=== PATIENT | male | born 1940 | race Caucasian/White ===

== ENCOUNTER 2016-06-27 10:59 | Day surgery (SDC) | payer MEDICARE ==
[~2016-06-27 10:59] MED LIST: DEXAMETHASONE SOD PHOSPHATE 10 MG/ML 1 ML VIAL IV ONE; HYDROmorphone 1 MG/ML 1 ML SYRINGE IVP PRN; LACTATED RINGERS 1,000 ML IV SCH; LIDOCAINE 1% 20 ML VIAL (10MG/ML) FOR IV START INTRADERMA PRN; Pre Op ABX Message 1 EACH MISC MISCELLANE ONE
[2016-06-27 11:36] VITALS: TEMP 97.6
[2016-06-27] MEDS ORDERED: KETOROLAC 30 MG/ML 1 ML VIAL ONE (12:28)
[2016-06-27] MEDS ORDERED: MIDAZOLAM 2 MG/2 ML VIAL ONE (12:28)
[2016-06-27] MEDS ORDERED: PROPOFOL 10 MG/ML 20 ML VIAL IV ONE (12:28)
[2016-06-27] MEDS ORDERED: LIDOCAINE 1% INJ 10MG/ML (20 ML MDV) ONE (12:28)
[2016-06-27] MEDS ORDERED: fentaNYL (PF) 50 MCG/ML 2 ML AMP ONE (12:28)
[2016-06-27] MEDS ORDERED: LIDOCAINE 2% INJ 20 MG/ML SQ ONE (12:41)
[2016-06-27] MEDS ORDERED: BUPIVACAIN-EPI 0.5%-1:200,000 30 ML VIAL SQ ONE (12:42)
[2016-06-27 13:50] VITALS: BP 157/75; PULSE 65; RESP 16
--- NOTE | 2016-06-28 08:08 | OP ---
DATE OF SERVICE: 06/27/2016 SURGEON: ALIA TALAVERA DO HAND SCREEN PRINTER: PREOPERATIVE DIAGNOSES: 1. Left carpal tunnel syndrome. 2. Left cubital tunnel syndrome. POSTOPERATIVE DIAGNOSES: 1. Left carpal tunnel syndrome. 2. Left cubital tunnel syndrome. OPERATION: 1. Carpal tunnel release. 2. Cubital tunnel release. ANESTHESIA: ESTIMATED BLOOD LOSS: SPECIMENS REMOVED: COMPLICATIONS: GROSS PATHOLOGY: Carpal tunnel release was relatively standard with no apparent complications. OPERATIVE FINDINGS: DESCRIPTION OF PROCEDURE: Regarding the cubital tunnel release, there was abnormal anatomic findings. There was very little epicondylar notch due to thickened tissue possible bone deposition. The ulnar nerve was subluxed anteriorly, more on the surface of the medial epicondyle. It was extremely tightly bound by muscle fascia proximally. Release was quite satisfactory and the nerve was intact at the completion of the procedure. When the elbow was placed through a range of motion at the completion of the procedure, there were no significant subluxations. There was no indication for further transposition. I then performed a local injection along the line of the incision with a combination of Marcaine and Xylocaine both without epinephrine. The hand was then prepped and draped in the usual manner. The arm was elevated, exsanguinated and the cuff was inflated to 250 mmHg. A longitudinal incision was made along the ring finger ray distal to the wrist crease. Dissection was taken through the skin and subcutaneous tissue, initially sharp through the skin and then blunt through the subcutaneous tissue to ensure protection of any potential terminal transverse branches of the palmar cutaneous nerve. The palmar fascia was then incised under direct vision longitudinally exposing the transverse carpal ligament. The transverse carpal ligament also was incised under direct vision. The dissection was then continued proximally beneath the skin under direct vision to release the distal forearm fascia. The median nerve was then reflected free of tenosynovium to ensure no adhesions. The tourniquet was then released. The wound was then irrigated and the skin was closed with a running 5-0 nylon suture. A soft bulky dressing was applied including a volar plaster splint holding the wrist in a neutral slightly extended position. The patient was then taken to the recovery room in satisfactory condition.
== END 2016-06-27 14:15 | disposition home or self-care (01) ==
LOC: OR 10:59
PROVIDERS: ATTEND Orthopaedic Surgery Hand Surgery
DX: G56.03 Carpal tunnel syndrome, bilateral upper limbs (principal); G56.23 Lesion of ulnar nerve, bilateral upper limbs; N40.0 Benign prostatic hyperplasia without lower urinary tract symptoms; I48.91 Unspecified atrial fibrillation; Z79.01 Long term (current) use of anticoagulants; Z79.899 Other long term (current) drug therapy
CPT/HCPCS: 64721; 64718; J2001 ×2; J2250; J1100; J3010; J1885; J2704; 99152; 99153

== ENCOUNTER 2016-07-25 13:05 | Day surgery (SDC) | payer MEDICARE ==
[2016-07-20 11:39] VITALS: BMI 25.8
[~2016-07-25 13:05] MED LIST changes: +MIDAZOLAM 2 MG/2 ML VIAL IV PRN; +ONDANSETRON 4 MG/2 ML VIAL IVP ONE; +SCOPOLAMINE 1.5MG/72HR PATCH TRANSDERM ONE
[2016-07-25 13:21] VITALS: TEMP 98.1
[2016-07-25] MEDS ORDERED: LIDOCAINE 1% INJ 10MG/ML (20 ML MDV) ONE (14:02)
[2016-07-25] MEDS ORDERED: fentaNYL (PF) 50 MCG/ML 2 ML AMP ONE (14:02)
[2016-07-25] MEDS ORDERED: MIDAZOLAM 2 MG/2 ML VIAL ONE (14:02)
[2016-07-25] MEDS ORDERED: KETOROLAC 30 MG/ML 1 ML VIAL ONE (14:02)
[2016-07-25] MEDS ORDERED: PROPOFOL 10 MG/ML 20 ML VIAL IV ONE (14:02)
[2016-07-25] MEDS ORDERED: BUPIVACAINE (PF) 0.5% 30 ML VIAL SQ ONE (14:13)
[2016-07-25] MEDS ORDERED: LIDOCAINE 2% (PF) 20 MG/ML 10ML SQ ONE (14:13)
[2016-07-25 14:43] VITALS: RESP 18
[2016-07-25 15:18] VITALS: BP 123/67; PULSE 68
--- NOTE | 2016-08-02 23:12 | OP ---
DATE OF SERVICE: 07/25/2016 SURGEON: ALIA TALAVERA DO MACHINE TURNER: PREOPERATIVE DIAGNOSES: 1. Right carpal tunnel syndrome. 2. Right cubital tunnel syndrome. POSTOPERATIVE DIAGNOSES: 1. Right carpal tunnel syndrome. 2. Right cubital tunnel syndrome. OPERATION: 1. Carpal tunnel release, right wrist. 2. Cubital tunnel release, right elbow. ANESTHESIA: ESTIMATED BLOOD LOSS: SPECIMENS REMOVED: COMPLICATIONS: PROCEDURE #1: The patient is taken to the operative suite where the procedure was done local with sedation. A light amount of IV sedation was provided by the department of anesthesia . After normal prep and drape, the arm was elevated, exsanguinated, and a tourniquet was inflated to 250 mm Mercury in proximal arm. A proximal palm midline 2 cm incision was performed and release fo transverse carpal ligament was performed under direct inspection. No apparent complications were encountered. PROCEDURE #2: . A longitudinal incision was made, somewhat posteriorly near the olecranon. Dissection was then taken through the skin and subcutaneous tissue with blunt dissection then performed to protect any posterior branches of the medial antebrachial cutaneous nerve of the arm. The ulnar nerve was then visualized in the retrocondylar groove and was traced in both the proximal and distal directions. Care was taken to ensure all potential sites of nerve entrapment were decompressed including the arcade of [place], the medial intermuscular septums, the retrocondylar groove, decubital tunnel and the flexor aponeurosis distally. Care was taken to avoid dissecting the ulnar nerve from its vascular supply. At the completion of the procedure, the elbow was placed in flexion and there is no sign of subluxation. The wound was then irrigated and the skin was closed with running 5-0 nylon suture. Marcaine was injected for long acting anesthetic. A soft bulky dressing was applied and the patient taken to the recovery room in satisfactory condition. ESTEBAN
== END 2016-07-25 15:19 | disposition home or self-care (01) ==
LOC: OR 13:05
PROVIDERS: ATTEND Orthopaedic Surgery Hand Surgery
DX: G56.03 Carpal tunnel syndrome, bilateral upper limbs (principal); G56.21 Lesion of ulnar nerve, right upper limb; I48.91 Unspecified atrial fibrillation; Z79.01 Long term (current) use of anticoagulants; N40.0 Benign prostatic hyperplasia without lower urinary tract symptoms; Z79.899 Other long term (current) drug therapy
CPT/HCPCS: 29848; 64718; J2250; J1100; J2001 ×2; J2405; J3010; J1885; J2704

== ENCOUNTER 2018-05-31 13:48 | Day surgery (SDC) | payer MEDICARE ==
[2018-05-28 12:43] VITALS: BMI 26.1
[2018-05-31] MEDS ORDERED: LIDOCAINE 1% INJ 10MG/ML (20 ML MDV) ONE (14:06)
[2018-05-31] MEDS ORDERED: SODIUM CHLORIDE 0.9% 1,000 ML IV ONE (14:15)
[2018-05-31] MEDS ORDERED: MIDAZOLAM 2 MG/2 ML VIAL ONE (14:43)
[2018-05-31] MEDS ORDERED: PROPOFOL 10 MG/ML 20 ML VIAL IV ONE (14:43)
[2018-05-31] MEDS ORDERED: SUCCINYLCHOLINE CHLORIDE 100 MG/5 ML SYR IV ONE (14:43)
[2018-05-31] MEDS ORDERED: PROTAMINE SULFATE 10 MG/ML 5 ML VIAL IV ONE (14:43)
[2018-05-31] MEDS ORDERED: HEPARIN SODIUM,PORCINE 5,000 UNIT/ML 1 ML VIAL ONE (14:43)
[2018-05-31] MEDS ORDERED: fentaNYL (PF) 50 MCG/ML 2 ML AMP ONE (14:43)
[2018-05-31] MEDS ORDERED: GLYCOPYRROLATE 0.2 MG/ML 2 ML VIAL ONE (14:43)
[2018-05-31] MEDS ORDERED: HEPARIN SOD,PORK IN 0.45% NACL 25,000 UNIT in 0.45% NACL 1 250ML.BAG IV ONE (15:19)
[2018-05-31] MEDS ORDERED: LIDOCAINE 1% INJ 10MG/ML (20 ML MDV) SQ ONE (15:19)
[2018-05-31] MEDS ORDERED: SODIUM CHLORIDE 0.9% 500 ML 500 ML IV ONE (16:47)
[2018-05-31] MEDS ORDERED: ACETAMINOPHEN TAB 325 MG TAB PO PRN (17:22)
[2018-05-31] MEDS ORDERED: HYDROcodone/APAP 5-325MG 1 EACH TAB PO PRN (17:22)
[2018-05-31] MEDS ORDERED: ACETAMINOPHEN IV (For NPO) 1,000 MG in EMPTY BAG 1 BAG IVPB ONE (17:22)
--- NOTE | 2018-05-31 17:48 | P.PCN ---
Preoperative Diagnosis: Diagnosis Atrial fibrillation, symptomatic, persistent Result Successful pulmonary vein isolation of all veins using cryo-ablation Complete entrance block in all 4 veins confirmed No evidence for phrenic nerve injury Additional Y ablations in the atrium, anterior right gely outside the pulmonary veins and left fossa ovalis Esophageal deflection YES , left-sided esophagus Electrical cardioversion with a synchronized shock across the chest YES , at the end of the procedure after complete isolation of all veins Procedure details Patient was brought to the EP lab in a fasting state. Written informed consent was obtained prior to the procedure. Procedure performed under general anesthesia After initial muscle relaxant use, muscle relaxants were not given thereafter in order to assess phrenic nerve during procedure. Patient prepped and draped as per protocol Full cryo-set up with standard preparation of the cryoablation tools done. Femoral Venous access obtained on the right and left groins Venous and arterial Sheaths placed. Diagnostic catheters for the high right atrium, phrenic nerve stimulation and pacing, His bundle, RV and coronary sinus placed Intracardiac echo catheter placed. Long sheath placed in the right atrium Left and right transseptal catheterization performed under intracardiac echo guidance. Intravenous heparin with aCT above 300 Later, catheter positioning and balloon positioning in the left atrium, under intracardiac echo guidance Recording from the high right atrium coronary sinus right ventricle Baseline measurements HV interval 24 ms Transseptal catheterization performed RA pressure 12/23/7 LA pressure 12//8 Transseptal catheterization performed with standard sheath. The cryoablation sheath was then placed with an over the wire exchange without any acute complications. All 4 pulmonary veins were isolated in the following sequence: Left superior followed by left inferior followed by right superior followed by right inferior The cryo-ablation balloon was placed at the os of each vein 1.5 mL of IV dye was injected to confirm an occluded vein Goal during cryoablation was to achieve complete occlusion of the pulmonary vein , achieve -30C at 30 seconds and achieve -40C at 60 seconds and a time to affect of less than 60-90 seconds, . If not the balloon was repositioned to obtain this result After completion of Cryoblation with durations from 180-240 seconds, entrance block was confirmed with the Attain circular catheter in a roving fashion around the antrum of the pulmonary veins Phrenic nerve pacing was performed from the SVC, right innominate vein area and diaphragm voltage was monitored. Diaphragmatic contractions were also monitored manually for strength of contraction. Parameter goals for each cryo freeze -30 C by 30 seconds -40 degrees C by 60 seconds Minimum between minus 40-55C Thaw time greater than 10 seconds Balloon visualized by intracardiac echo The esophagus was intubated. Esophageal Temperature monitoring with a CIRCA catheter formed. Esophageal deflection for hypothermia of the esophagus below 32C Left superior pulmonary vein 3 minutes followed by 2 minutes, complete isolation Left inferior pulmonary vein 3 minutes, complete isolation Right superior pulmonary vein, during phrenic nerve pacing 3 minutes followed by 3 minutes, isolation and 77 seconds Right inferior pulmonary vein, during phrenic nerve pacing 4 minute cryoablation, complete isolation Additional cryo ablations performed #1 anterior right gely outside the pulmonary veins, in between the 2 pulmonary veins #2 fossa ovalis on the left side At the end of the procedure the Achieve catheter was once again used to check for entrance block Phrenic nerve stimulation was performed to confirm diaphragmatic stimulation the end of the procedure Cine fluoroscopy was performed at the very end of the procedure to confirm movement of both diaphragms with inspiration and expiration At the end of the procedure the patient was extubated Heparin was reversed Venous sheaths were removed and hemostasis assured Procedures performed (PVI - CRYO Ablation) Invasive hemodynamic monitoring while general anesthesia, right femoral arterial line for monitoring and sampling Comprehensive diagnostic EP study CS pacing and recording Left and right transseptal catheterization Catheter the mapping of the tachycardia (NOT 3D mapping) Intracardiac echocardiography Pulmonary vein isolation with transseptal and comprehensive EPS, [id number] Additional linear ablation 2 Electrical cardioversion with a synchronized shock across the chest [id number] Anesthesia: GETA
[2018-05-31] MEDS: SODIUM CHLORIDE 0.9% 1,000 ML IV SCH ×2 (19:38→19:39)
[2018-05-31] MEDS: LACTATED RINGERS 1,000 ML IV SCH ×2 (19:38→19:39)
[2018-05-31] MEDS ORDERED: RIVAROXABAN 20 MG TAB PO SCH (21:00)
[2018-05-31] MEDS ORDERED: FAMOTIDINE 20 MG TAB PO SCH (21:00)
[2018-05-31] MEDS: COLCHICINE 0.6 MG EACH PO SCH (21:21)
--- NOTE | 2018-06-01 07:20 | P.DS ---
Providers Attending physician: Austin Ching Primary care physician: [facility] Course: Impression is doing well. No chest discomfort assess lightheadedness or palpitations. He does have a sore throat. No groin problems no pain Afebrile 98.6F pulse rate in the 70s blood pressure 120/68 mmHg No JVD no swelling in the groins bilaterally normal heart sounds normal S1 normal S2 no murmurs or gallops no rub Breath sounds are clear no rhonchi no crackles Abdomen soft nontender Extremities warm no edema No hematoma no swelling in both groins Impression Persistent atrial fibrillation status post cryoablation of the pulmonary veins with complete isolation of all 4 pulmonary veins Past history of atrial flutter status post ablation many years back Sick sinus syndrome, unable to tolerate antiarrhythmic drugs and AV node blocking drugs Appropriately anticoagulated since ANTHONY VASC core is at least 2 Suggest Ablating the hallways discharge home before 5:00 if stable and follow-up in the office in 1-2 weeks Patient Condition at Discharge: Stable Plan - Discharge Summary Discharge Rx Participant: No New Discharge Prescriptions: Continue Glucosam/Jose-Msm1/C/Walter/Bosw [Glucosamine-Chondroitin Tablet] 1 each PO DAILY Fish Oil/Dha/Epa [Fish Oil 1,200 mg Fish Oil] 1 each PO DAILY Cholecalciferol [Vitamin D3] 5,000 unit PO DAILY Rivaroxaban [Xarelto] 20 mg PO HS Fluticasone Nasal [place] [Flonase Nasal [place]] 1 spr NASAL DAILY PRN PRN Reason: Allergy Symptoms Ubidecarenone [Co Q-10] 100 mg PO DAILY Milk Thistle 1,000 mg PO DAILY Curcumin 1,000 mg PO DAILY Meloxicam [Mobic] 15 mg PO DAILY PRN PRN Reason: OA PAIN Discharge Medication List Cholecalciferol [Vitamin D3] 5,000 unit PO DAILY 03/03/16 [History] Fish Oil/Dha/Epa [Fish Oil 1,200 mg Fish Oil] 1 each PO DAILY 03/03/16 [History] Glucosam/Jose-Msm1/C/Walter/Bosw [Glucosamine-Chondroitin Tablet] 1 each PO DAILY 03/03/16 [History] Fluticasone Nasal [place] [Flonase Nasal [place]] 1 spr NASAL DAILY PRN 06/22/16 [ History] Rivaroxaban [Xarelto] 20 mg PO HS 06/22/16 [History] Curcumin 1,000 mg PO DAILY 05/28/18 [History] Meloxicam [Mobic] 15 mg PO DAILY PRN 05/28/18 [History] Milk Thistle 1,000 mg PO DAILY 05/28/18 [History] Ubidecarenone [Co Q-10] 100 mg PO DAILY 05/28/18 [History] Follow up Appointment(s)/Referral(s): Austin Ching MD [STAFF PHYSICIAN] - 1 Week (Groin check in 1 week Follow-up with Dr. Solis again in 3 months) Activity/Diet/Wound Care/Special Instructions: Post EP study - Ablation instructions 1. Keep access sites dry for 2 days. 2. No heavy lifting or straining for 2 days. 3. Avoid bending the hips repeatedly for 2 days. 4. You may go up and down stairs slowly Call if the following is noted 1. Bleeding, increasing swelling or pain at the access sites. 2. Increasing chest discomfort, especially upon taking a deep breath. 3. Increasing shortness of breath, at rest or with exertion. 4. Undue cough / phlegm 5. Difficulty or pain while swallowing. 6. Pain or change in color in the extremities. 7. Fever, chills, rigors. 8. Increasing headache or neurologic symptoms. 9. Dizziness, fainting, palpitations Discharge Disposition: HOME SELF-CARE
[2018-06-01] MEDS: COLCHICINE 0.6 MG EACH PO SCH (09:15)
[2018-06-01 15:38] VITALS: BP 129/80; PULSE 66; RESP 18; TEMP 97.3
== END 2018-06-01 17:18 | disposition home or self-care (01) ==
LOC: CATHEP 13:48 → 1SOBS 17:26 → CATHEP 06-01 17:18
PROVIDERS: ATTEND Internal Medicine Clinical Cardiac Electrophysiology
DX: I48.1 Persistent atrial fibrillation (principal); I49.5 Sick sinus syndrome; I48.92 Unspecified atrial flutter; R07.89 Other chest pain; Z79.01 Long term (current) use of anticoagulants; Z82.49 Family history of ischemic heart disease and other diseases of the circulatory system; Z79.899 Other long term (current) drug therapy; E78.5 Hyperlipidemia, unspecified
CPT/HCPCS: 85347; 92960; 93662; 93609; 93656; C1769 ×4; C1894 ×2; C1730 ×2; C1759; C1893; C1733; C1766; J2250; J2720; J1644 ×2; J2001; J3010; J0330; J2704

== ENCOUNTER → 2019-09-25 | Outpatient (CLI) | payer MEDICARE | END | disposition home or self-care (01) | LOC: LABWHC1 11:37 | PROVIDERS: ATTEND Internal Medicine Clinical Cardiac Electrophysiology | DX: U07.1 COVID-19 (principal) | CPT/HCPCS: 87635 ==

== ENCOUNTER 2019-09-27 10:26 | Day surgery (SDC) | payer MEDICARE ==
[2019-09-26 08:33] VITALS: BMI 26.5
[~2019-09-27 10:26] MED LIST changes: -DEXAMETHASONE SOD PHOSPHATE 10 MG/ML 1 ML VIAL IV ONE; -HYDROmorphone 1 MG/ML 1 ML SYRINGE IVP PRN; -LACTATED RINGERS 1,000 ML IV SCH; -LIDOCAINE 1% 20 ML VIAL (10MG/ML) FOR IV START INTRADERMA PRN; -MIDAZOLAM 2 MG/2 ML VIAL IV PRN; -ONDANSETRON 4 MG/2 ML VIAL IVP ONE; -Pre Op ABX Message 1 EACH MISC MISCELLANE ONE; -SCOPOLAMINE 1.5MG/72HR PATCH TRANSDERM ONE; +SODIUM CHLORIDE 0.9% 1,000 ML IV SCH
[2019-09-27 11:15] VITALS: RESP 16; TEMP 97.8
[2019-09-27] MEDS ORDERED: SODIUM CHLORIDE 0.9% 500 ML 500 ML IV ONE (11:16)
[2019-09-27] MEDS ORDERED: LIDOCAINE 1% INJ 10MG/ML (20 ML MDV) ONE (12:20)
[2019-09-27] MEDS ORDERED: MIDAZOLAM 2 MG/2 ML VIAL IV ONE (12:26)
[2019-09-27] MEDS ORDERED: LIDOCAINE 1% INJ 10MG/ML (20 ML MDV) SQ ONE (12:28)
--- NOTE | 2019-09-27 12:50 | P.PCN ---
Preoperative Diagnosis: Loop explant under sedation and local anesthesia. Patient was brought to the EP lab in a fasting state. Written informed consent was obtained prior to the procedure. The subcutaneous device was successfully explanted under local anesthesia. Preoperative antibiotics were administered. The wound was closed in layers and dressed per protocol. Result: Successful loop monitor explantation. Patient underwent EP procedure under conscious sedation/moderate sedation, monitoring of the level of consciousness and physiologic parameters including but not limited to vital signs and oxygenation. Patient tolerated the procedure well without any acute complications. Start time: 1227 Stop time: 1244
[2019-09-27 16:26] VITALS: BP 137/89; PULSE 83
== END 2019-09-27 13:52 | disposition home or self-care (01) ==
LOC: CATHEP 10:26
PROVIDERS: ATTEND Internal Medicine Clinical Cardiac Electrophysiology
DX: I48.91 Unspecified atrial fibrillation (principal); I48.92 Unspecified atrial flutter; I49.5 Sick sinus syndrome
CPT/HCPCS: 33286; J2250; J0690; J2001